=== PATIENT | female | born 1960 | race Caucasian/White ===

== ENCOUNTER 2017-05-07 04:13 | Observation (INO) ==
--- NOTE | 2017-05-07 04:26 | Emergency Department Note ---
Disposition Clinical Impression: Chest pain Qualifiers: Chest pain type: unspecified Qualified Code(s): R07.9 - Chest pain, unspecified Disposition: Admitted As Inpatient Condition: Undetermined Referrals: Rina Whelan DO [Primary Care Provider] - Forms: ED Satisfaction Letter Time of Disposition: 05:27 Chest Pain HPI - General Chief Complaint: ED Chest Pain Stated Complaint: Chest Pain Time Seen by Provider: 05/07/17 04:21 Source: patient Mode of arrival: ambulatory Limitations: no limitations Vital Signs Reviewed: Yes Nursing Notes Reviewed: Yes - History of Present Illness HPI Narrative: 56-year-old female with history of smoking arrives [facility] emergency department complaining of chest pain that began in her neck and radiated down to retrosternal region and into her back with associated shortness of breath. The patient states she has never had any experience like this in the past. The patient denies any previous history of OR or cardiac testing. The patient states that she denies any nausea, vomiting, unilateral weakness, unilateral leg swelling, recent surgeries, recent immobilizations, history of DVT or PE. The patient states that this started roughly 1 hour prior to arrival she was laying down. The patient denies any other complaints at this time is resting comfortably but appears slightly anxious on examination. The patient is tachycardic in the room. Pt complaint: chest pain Onset (ago): hour(s) (1) Duration: now resolved Onset: during rest Pain Location: substernal Severity: moderate Severity scale (1-10): 8 Quality: tightness Pain Radiation: neck Improves with: nothing Worsens with: nothing Associated symptoms: Reports: dyspnea Treatments prior to arrival chest pain: none - Related Data On Oral Contraceptives: No Previous Rx's Medication Instructions Recorded predniSONE [Prednisone] 50 mg PO DAILY #6 tablet 03/24/15 valACYclovir [Valtrex] 1,000 mg PO TID #21 tablet 03/24/15 Allergies Allergy/AdvReac Type Severity Reaction Status Date / Time No Known Allergies Allergy Verified 05/07/17 04:21 All systems ED: reviewed and negative except as stated. Constitutional: Denies: fever, chills, weakness ENT ED: Denies: congestion Cardiovascular: Reports: chest pain. Denies: dyspnea on exertion, orthopnea, edema Respiratory: Reports: dyspnea. Denies: wheezes, hemoptysis, sputum production Gastrointestinal: Denies: abdominal pain, nausea, vomiting Musculoskeletal: Reports: back pain, neck pain. Denies: arthralgia, myalgia Neurological: Denies: headache, weakness, confusion Chest Pain PMH - Past Medical History Medical history: Reports: other Surgical history: Reports: no surgical history Psychiatric history: Reports: no psych history INSTRUCTIONAL PARAPROFESSIONAL history: Reports: non-contributory - Social History Smoking Status: Current every day smoker Alcohol use: Reports: occasionally Drug use: Reports: none Physical Exam - General Limitations: no limitations General appearance: alert, in no apparent distress - Head Head exam: atraumatic, normocephalic, normal inspection - Neck Neck exam: Present: normal inspection, full ROM, trachea midline - Chest Chest inspection: Present: normal inspection, symmetric chest wall rise - Respiratory Respiratory exam: Present: normal lung sounds bilaterally - Cardiovascular Cardiovascular exam: Present: regular rate, normal rhythm, normal heart sounds - Abdominal Exam Abdominal exam: Present: soft, Non-Tender. Absent: tenderness, distention, guarding, rebound, rigidity - Extremities Exam Extremities exam: Present: normal inspection, full ROM. Absent: tenderness, pedal edema - Neurological Exam Neurological exam: Present: alert, oriented X3 - Skin Skin exam: Present: warm, dry, intact, normal color Course Vital Signs Temperature 97.7 F 05/07/17 04:16 Pulse Rate 109 05/07/17 04:16 Respiratory Rate 16 05/07/17 04:16 Blood Pressure 136/73 05/07/17 04:16 O2 Sat by Pulse Oximetry 98 05/07/17 04:16 Temperature 97.7 F 05/07/17 04:16 Pulse Rate 109 05/07/17 04:16 Respiratory Rate 16 05/07/17 04:16 Blood Pressure 136/73 05/07/17 04:16 O2 Sat by Pulse Oximetry 98 05/07/17 04:16 Oxygen Delivery Oxygen Delivery Room Air Chest Pain - MDM Narrative Medical decision making narrative: Workup here in the emergency department demonstrates no acute process. The patient is noted to have a leukocytosis of unknown etiology but this likely can be associated to possible pain. The patient denies any other complaints at this time. No signs of pneumonia or any other infectious process on physical exam. The patient has a negative troponin and negative chest x-ray but does have specific ST changes noted on her EKG. The patient has no previous cardiac testing and given the type and sensation of the patient's pain, we will admit the patient to the hospitalist for an ACS rule out. The patient was made aware and agrees to plan. She did take 1 baby aspirin at home so we will give her a large dose aspirin here in the emergency department. The patient agrees to this plan. Accepted by Dr. Celestin. - Lab Data Lab results reviewed: Yes I reviewed the patient's lab results. Result diagrams: 05/07/17 04:34 05/07/17 04:34 Lab Results 05/07/17 05/07/17 05/07/17 Range/Units 04:34 04:34 04:34 WBC 20.9 H (4.3-11.1) K/mcL RBC 4.21 (3.82-4.97) M/mcL Hgb 13.7 (11.5-15.4) g/dL Hct 41.0 (35.3-44.9) % MCV 97.4 (83.0-100.0) fL MCH 32.5 (28.0-33.3) pg MCHC 33.4 (31.6-35.5) g/dL RDW 11.8 (11.5-14.5) % Plt Count 435 H (140-400) K/mcL MPV 9.2 L (9.4-12.4) fL Immature Gran % 0.6 (0-4) % Seg Neutrophils % 82.2 % Lymphocytes % 8.9 % Monocytes % 7.5 % Eosinophils % 0.5 % Basophils % 0.3 % Neutrophils # 17.1 H (1.6-8.9) K/mcL Lymphocytes # 1.9 (0.6-4.6) K/mcL Monocytes # 1.6 H (0.0-1.3) K/mcL Eosinophils # 0.1 (0.0-0.6) K/mcL Basophils # 0.1 (0.0-0.2) K/mcL D-Dimer (0-500) ng/mLFEU Sodium 135 L (136-145) mEq/L Potassium 3.7 (3.5-4.5) mEq/L Chloride 104 (98-109) mEq/L Carbon Dioxide 23 (19-29) mEq/L BUN 10 (7-20) mg/dL Creatinine 0.72 (0.57-1.11) mg/dL Est GFR ( Amer) > 60 (> 60) Est GFR (Non-Af Amer) > 60 (> 60) BUN/Creatinine Ratio 14 (6-26) Glucose 132 H (70-99) mg/dL Calculated Osmolality 281 (280-300) Calcium 9.1 (8.6-10.8) mg/dL Troponin I 0.00 (0-0.03) ng/mL 05/07/17 Range/Units 04:34 WBC (4.3-11.1) K/mcL RBC (3.82-4.97) M/mcL Hgb (11.5-15.4) g/dL Hct (35.3-44.9) % MCV (83.0-100.0) fL MCH (28.0-33.3) pg MCHC (31.6-35.5) g/dL RDW (11.5-14.5) % Plt Count (140-400) K/mcL MPV (9.4-12.4) fL Immature Gran % (0-4) % Seg Neutrophils % % Lymphocytes % % Monocytes % % Eosinophils % % Basophils % % Neutrophils # (1.6-8.9) K/mcL Lymphocytes # (0.6-4.6) K/mcL Monocytes # (0.0-1.3) K/mcL Eosinophils # (0.0-0.6) K/mcL Basophils # (0.0-0.2) K/mcL D-Dimer 355 (0-500) ng/mLFEU Sodium (136-145) mEq/L Potassium (3.5-4.5) mEq/L Chloride (98-109) mEq/L Carbon Dioxide (19-29) mEq/L BUN (7-20) mg/dL Creatinine (0.57-1.11) mg/dL Est GFR ( Amer) (> 60) Est GFR (Non-Af Amer) (> 60) BUN/Creatinine Ratio (6-26) Glucose (70-99) mg/dL Calculated Osmolality (280-300) Calcium (8.6-10.8) mg/dL Troponin I (0-0.03) ng/mL - Radiology Data Radiology results reviewed: Yes I reviewed the patient's radiology results. - EKG Data EKG attestation: Yes I reviewed and interpreted this EKG. EKG results narrative: Heart rate 10 2 bpm. ND interval 124 ms. QTC 378 ms. Normal axis. Sinus tachycardia. No ST elevation but ST depression noted in leads 2, 3, aVF, V3 through V6 with nonspecific ST changes noted in the lateral leads from previous EKG on 12/11/2016. Attestation Statement - Attestation Attestation: I, Mario Calderon MD, personally evaluated this patient and discussed their management with the resident physician. I reviewed the resident's note and agree with the documented findings, medical decision making, and plan of care. 56-year-old female presents to the emergency department with a complaint that she was awakened from sleep about 1 hour prior to arrival with severe substernal chest pain radiating up into her throat area. The pain then radiated into the back between her shoulder blades. She denies any shortness of breath or diaphoresis associated with the pain. No history of any heart disease or hypertension. She is a smoker. No family history of heart disease. On examination patient is a well-developed well-nourished female in no acute distress. She is alert and oriented 3. There is no cyanosis or diaphoresis. Neck is supple and nontender with no lymphadenopathy. Chest is nontender to palpation. Breath sounds are clear and equal bilaterally. Heart regular rate and rhythm. No murmur or ectopy. Abdomen soft and nontender with normal bowel sounds. No pedal edema. Labs reviewed. Troponin negative. Chest x-ray negative. EKG shows sinus tachycardia, heart rate 102, nonspecific ST and T-wave changes with diffuse T- wave flattening and mild ST depression in the inferior and anterolateral leads. The hospitalist, Dr. Celestin, was consulted and accepted admission of the patient.
[2017-05-07 04:43] LABS: Basophils # 0.1 K/mcL (0.0-0.2); Basophils % 0.3 %; Eosinophils # 0.1 K/mcL (0.0-0.6); Eosinophils % 0.5 %; Hemoglobin 13.7 g/dL (11.5-15.4); Immature Granulocytes % 0.6 % (0-4); Lymphocytes # 1.9 K/mcL (0.6-4.6); Lymphocytes % 8.9 %; Mean Corpuscular HGB Conc 33.4 g/dL (31.6-35.5); Mean Corpuscular Hemoglobin 32.5 pg (28.0-33.3); Mean Corpuscular Volume 97.4 fL (83.0-100.0); Mean Platelet Volume 9.2 fL (9.4-12.4); Monocytes # 1.6 K/mcL (0.0-1.3); Monocytes % 7.5 %; Neutrophils # 17.1 K/mcL (1.6-8.9); Platelet Count 435 K/mcL (140-400); Red Blood Count 4.21 M/mcL (3.82-4.97); Red Cell Distribution Width 11.8 % (11.5-14.5); Segmented Neutrophils % 82.2 %
[2017-05-07 04:56] LABS: BUN/Creatinine Ratio 14 (6-26); Blood Urea Nitrogen 10 mg/dL (7-20); Calcium 9.1 mg/dL (8.6-10.8); Carbon Dioxide 23 mEq/L (19-29); Chloride 104 mEq/L (98-109); Glucose 132 mg/dL (70-99); Osmolality,Calculated 281 (280-300); Potassium 3.7 mEq/L (3.5-4.5); Sodium 135 mEq/L (136-145); eGFR For African Americans > 60 (> 60); eGFR For Non-African Americans > 60 (> 60)
[2017-05-07] MEDS ORDERED: Aspirin 325 MG TABLET PO ONE (05:12)
[2017-05-07] MEDS ORDERED: Acetaminophen 325 MG TABLET PO PRN (06:04)
[2017-05-07] MEDS ORDERED: Ondansetron 4 MG/2 ML VIAL IVP PRN (06:04)
[2017-05-07] MEDS ORDERED: Naloxone 0.4 MG/ML INJ IVP PRN (06:04)
[2017-05-07] MEDS ORDERED: *HR* Morphine 2 MG/ML SYRINGE IVP PRN (06:04)
[2017-05-07] MEDS ORDERED: Nitroglycerin 0.4 MG TAB.SUBL SL PRN (06:09)
[2017-05-07] MEDS ORDERED: 0.9 % Sodium Chloride 1,000 ML IVC SCH (06:15)
[2017-05-07] MEDS ORDERED: Regadenoson 0.4 MG/5 ML SYRINGE IVP ONE (06:17)
--- NOTE | 2017-05-07 06:17 | Internal Med History&Physical ---
Date of Encounter: 05/07/17 Time of Encounter: 06:00 Assessment and Plan (1) Chest pain Current visit: Yes Status: Acute Acute chest pain - rule out ACS, possible unstable angina - risk factor includes smoking Continue Aspirin, Lipitor, Metoprolol IV Morphine PRN, Nitroglycerin PRN Troponin - 0.00, cycle troponin BNP - pending EKG - sinus tachycardia with nonspecific ST-T changes Chest x-ray - negative D-dimer - 355 WBC - 20.9, unclear etiology Echocardiogram - pending Stress test - pending Cardiology consult if troponin is elevated or if chest pain is persistent Cardiac telemetry, labs in a.m., monitor closely Qualifiers: Chest pain type: unspecified Qualified Code(s): R07.9 - Chest pain, unspecified (2) Tobacco abuse Current visit: Yes Status: Chronic Patient states she smokes about half pack cigarettes - has been smoking for about 10 years Counseled about cessation (3) DVT prophylaxis Current visit: Yes Status: Acute Continue Heparin subcutaneous Internal Medicine - H&P: HPI Chief complaint: Chest pain Admitted From: Emergency Dept Plans for Post Hospital Care: Home History of present illness: Ms. Vincent is a 56 year old female with no significant past medical history. She presents to ED with complaint of chest pain. Examined in the room. Patient is awake and alert. Not in any distress. Able to provide all history. No family members at bedside. Patient states she woke up at 2 AM this morning with chest pain. Patient states she fell asleep on the couch and woke up to go into the kitchen and felt some chest pressure and tightness. Symptoms are gradually worsening and pain was about 10 out of 10. She describes it as pressure which is constant, and radiating to her neck. Pain also seems to be radiating to her back. She also experienced palpitations and mild shortness of breath, but no diaphoresis. Pain is worse when she takes a deep breath. Denies vomiting or abdominal pain or fever or diarrhea. No alleviating factors. Patient states her pain is 5 out of 10 at present. No other associated symptoms. No other acute complaints. She was given aspirin in the ED. Initial workup in the ED significant for elevated white count. EKG shows sinus tachycardia with nonspecific ST changes. Troponin is negative. D-dimer is negative. Chest x-ray is negative. Patient is a chronic smoker. She has no history of any coronary artery disease in family. Patient is being admitted for chest pain to rule out ACS. Patient has been explained about her condition and plan of care. She understood and agreed. No unanswered questions. CODE STATUS full code. Past Med Surg Social Fam HX - Past Medical History Medical history: non-contributory, other Psychiatric history: no psych history - Past Surgical History Surgical History: no surgical history - Social History Smoking Status: Current every day smoker Smokeless Tobacco Status: No Alcohol use: occasionally Drug use: none - Family History Maternal Grandmother Name: Jovita Sorto Age at : 94 Hx Family Neurologic Disorders: Yes (Alzheimers) Internal Medicine - H&P: Meds predniSONE [Prednisone] 50 mg PO DAILY #6 tablet 03/24/15 [Rx] valACYclovir [Valtrex] 1,000 mg PO TID #21 tablet 03/24/15 [Rx] 3 Allergy/AdvReac Type Severity Reaction Status Date / Time No Known Allergies Allergy Verified 05/07/17 04:21 All Systems PM: A 10-system review of systems was performed and is negative for pertinent findings except as documented above in the HPI. - Constitutional Constitutional: no fatigue, no fever(s), no weakness - EENT Eyes: no blurry vision - Cardiovascular Cardiovascular ROS IM: chest pain, dyspnea, palpitations, no diaphoresis, no dyspnea on exertion, no edema, no lightheadedness, no orthopnea, no syncope - Respiratory Respiratory: dyspnea, no cough, no hemoptysis, no dyspnea on exertion, no wheezing, no chest congestion - Gastrointestinal Gastrointestinal: no abdominal pain, no bloating, no cramping, no diarrhea, no hematemesis, no hematochezia, no melena, no nausea, no vomiting - Genitourinary Genitourinary: no dysuria - Musculoskeletal Musculoskeletal ROS IM: back pain - Neurological Neurological ROS: no abnormal gait, no confusion, no dizziness, no loss of vision, no numbness, no tingling - Constitutional Vitals: Temp Pulse Resp BP Pulse Ox 97.7 F 105 16 129/80 97 05/07/17 04:16 05/07/17 05:28 05/07/17 05:51 05/07/17 05:51 05/07/17 05:28 General appearance: Present: cooperative, A&O X 3, pleasant, no acute distress, answers questions appropriately - Head Head exam: Present: atraumatic - Eye Eye exam: Present: EOMI - ENT ENT exam: Present: mucous membranes moist - Cardiovascular Cardiovascular exam: Present: +S1, +S2, tachycardia (Regular rhythm) - GI/Abdominal GI/Abdominal exam: Present: soft. Absent: distended, firm, guarding, tenderness - Extremities Exam Extremities exam: Present: radial pulses palpable and symmetrical. Absent: calf tenderness, cyanotic, pedal edema - Neurological Exam Neurological exam: Present: alert, oriented X3, no focal deficits. Absent: facial droop, speech deficit Internal Med - H&P Results - Labs CBC & Chem 7: 05/07/17 04:34 05/07/17 04:34
[2017-05-07 06:33] LABS: INR 0.9; Prothrombin Time 9.4 Seconds (9.4-12.1)
[2017-05-07] MEDS: *HR* Heparin 5,000 UNIT/ML VIAL SQ SCH ×4 (06:40→20:29)
[2017-05-07 06:41] LABS: Chol/HDL Ratio 4.2 (0-4.9); Cholesterol 246 mg/dL (< 200); HDL Cholesterol 59 mg/dL (40-59); LDL Cholesterol,Calculated 148 mg/dL (0-99); Magnesium 1.8 mg/dL (1.6-2.6); Triglycerides 194 mg/dL (< 150)
[2017-05-07 08:18] LABS: Bilirubin,Urine Negative (Negative); Blood,Urine Moderate (Negative); Clarity,Urine Clear (Clear); Color,Urine Yellow (Yellow); Glucose,Urine (UA) Normal (Normal); Ketones,Urine Negative (Negative); Leukocyte Esterase,Urine Negative (Negative); Nitrite,Urine Negative (Negative); PH,Urine 6.5 pH Units (5.0-8.0); Protein,Urine Negative (Neg-Trace); Specific Gravity,Urine 1.006 (1.010-1.025); Urobilinogen,Urine Normal (Normal)
[2017-05-07 08:32] LABS: Squamous Epithelial Cell,Urine Few per lpf (None-Few)
[2017-05-07 08:34] LABS: Bacteria,Urine Few per hpf (None-Few); RBC,Urine 0-3 per hpf (0-3)
[2017-05-07 10:22] LABS: Hemoglobin A1C 4.9 %
[2017-05-07] MEDS: Aspirin 81 MG TAB.CHEW PO SCH (12:08)
--- NOTE | 2017-05-07 12:56 | Nuclear Medicine Stress Report ---
Regadenoson Nuclear Stress Name: Jolie Vincent Date of Study: 05/07/2017 Date: 1960 Ht: 65.0 in Medical Record#: [id number] Age: 56 Wt: 140.0 lb Gender: Female Order #: [id number] [facility] Room[facility] Supervising Provider: oSnny Sanders CNP Reading Physician: Jaimee Rodriguez DO Ordering Physician: Brigitte Mosher CNP Stress Technologist: Florencio Megloza CRT Orthopedic Mechanic: Dale Juárez Indications: Chest Pain Impression: Perfusion imaging was negative for ischemia or infarct. Pharmacologic ECG was non diagnostic for ischemia. Patient had 5/10 chest pain described as occurring during inspiration. Gated EF = >70%. Recommend clinical correlation. History: History of Smoking Stress Test Summary: Stress Test Type: Pharmacologic Regadenoson 0.4mg/5ml given IV Baseline Information: Initial Heart Rate: 86 Blood Pressure: 112/70 Stress Information: Test Terminated Due to (primary): As per protocol Maximum Blood Pressure: 110/60 Maximum Heart Rate: 122 Percent Maximum Heart Rate Achieved: 74 Double Product: 22048 METS Reached: 1 Symptoms: No change in symptoms Nuclear Summary: SPECT myocardial perfusion imaging using Tc99m Sestamibi given intravenously was performed at rest and following cardiac stress testing. The resting images were obtained following initial dose of 10.4 mCi. Following stress an additional dose of 32.8 mCi was given at peak exercise or 30 seconds post regadenoson infusion. Medication Given: Time Medication Dose Units Route Findings: Stress Note * Resting ECG demonstrated normal sinus rhythm. There are nonspecific ST-T abnormalities immediately during beginning of stage 1 and intermittently occur during pharmacologic stress. * Pharmacologic stress ECG is non diagnostic for ischemia due to baseline non-specific ST and T changes. * No arrhythmias were noted during stress. * Patient described chest heaviness 5/10 with inspiration during testing. Hemodynamic responses * Normal hemodynamic responses to pharmacologic stress. Study Quality * Study quality is good. Gated EF > 70% * Gated EF > 70%. Left Ventricle * The left ventricle is not dilated. TID * No evidence of transient ischemic dilatation. Lung Uptake * There is no evidence of increase lung uptake. NORMALS * Normal wall motion. * Normal segmental perfusion in stress. * Normal Segmental Perfusion in rest. Updated by Jaimee Rodriguez on 05/07/2017 12:49:06 PM electronically signed on 05/07/2017 12:50:46 PM with status of Final
[2017-05-07 14:13] LABS: BUN/Creatinine Ratio 13 (6-26); Blood Urea Nitrogen 8 mg/dL (7-20); Calcium 8.8 mg/dL (8.6-10.8); Carbon Dioxide 26 mEq/L (19-29); Chloride 106 mEq/L (98-109); Glucose 113 mg/dL (70-99); Osmolality,Calculated 287 (280-300); Sodium 139 mEq/L (136-145); eGFR For African Americans > 60 (> 60); eGFR For Non-African Americans > 60 (> 60)
--- NOTE | 2017-05-07 17:07 | Electrocardiograph Report ---
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
--- NOTE | 2017-05-07 17:18 | Electrocardiograph Report ---
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
[2017-05-07] MEDS: Famotidine 20 MG/2 ML VIAL IVP SCH (17:39)
--- NOTE | 2017-05-07 17:40 | Internal Med Progress Note ---
Date of Encounter: 05/07/17 Time of Encounter: 07:30 - Assessment and plan (1) Chest pain Current Visit: Yes Status: Acute Assessment and plan: Pt was admitted for chest pain, rates it currently 08/15. Denies aggravating or alleviating factors. Risk factors include smoking and female sex. Pt has been placed on ASA, statin, and BB. Treat pain with IV morphine or NTG prn BNP negative, DDimer not elevated, leukocytosis of uncertain etiology, could be reactive to stress Chest xray negative. EKG was sinus rhythm with short PA interval, nonspecific T -wave abnormality rate 89, PA interval 92, QRS 81, QTC 409. Echocardiogram shows LVEF of 65% with normal LV systolic function, normal LVEDD , no significant valvular dysfunction. Stress test negative for ischemia or infarct, gated EF >70%. During stress test patient had 5/10 chest pain that occurred during inspiration. Differentials include bronchitis, possible COPD exacerbation, the patient has not been diagnosed with COPD, reflux. She denies cough She is a smoker. Patient denies history of GERD or any GERD symptoms. Abdomen is soft and nontender with bowel sounds present. Bedolla sign is negative, there is no tenderness to palpation in epigastric area or McBurney's point. Continue telemetry Pain medication as needed, continue aspirin, statin, beta gabe Qualifiers: Chest pain type: unspecified Qualified Code(s): R07.9 - Chest pain, unspecified (2) Tobacco abuse Current Visit: Yes Status: Chronic Assessment and plan: Patient is a one pack per day smoker. We discussed smoking cessation, she states that she has not thought about having a cigarette. Continue to encourage smoking cessation prior to discharge. (3) DVT prophylaxis Current Visit: Yes Status: Acute Assessment and plan: Heparin subcutaneous. Patient is ambulatory in her room. (4) Leukocytosis Current Visit: Yes Status: Acute Assessment and plan: Pt admitted with WBC 20.9, neutrophils 17.0. Unclear etiology. Will recheck labs in the a.m. Pt admitted for chest pain that appears to increase with deep inspiration. She denies cough or recent illness. She denies subjective fevers or sick contacts. Pt has been afebrile here and has been tachycardic until about noon today, pulse has returned to normal limits. She is not tachypneic. Urine is negative for infection, chest xray is negative. Differentials include viral infection, early bronchitis, early pneumonia, COPD exacerbation. Continue to monitor labs, vitals for signs of sepsis Redraw labs in a.m. Qualifiers: Leukocytosis type: unspecified Qualified Code(s): D72.829 - Elevated white blood cell count, unspecified - Time Spent With Patient less than 15 minutes - Subjective Interval history: Pt was seen and assessed at 0730 this am. Pt is alert, oriented, answers questions appropriately. She reports sudden onset chest pressure/heaviness that originated in the epigastric area and radiated into her throat at 0200. She states that after a while, it began to radiate in upper back and she was unable to get comfortable in her bed, prompting the visit to the ED. Currently, pt reports 1/10 pain, same as above. She denies n/v/d, diaphoresis, radiation to jaw or arm. Pt denies headache, vision changes, SOB, abdominal pain, stiff neck , or recent change in routine/physical activity. - Constitutional Vitals: Temp Pulse Resp BP Pulse Ox 98.9 F 79 16 102/68 97 05/07/17 15:38 05/07/17 15:38 05/07/17 15:38 05/07/17 15:38 05/07/17 15:38 General appearance: Present: cooperative, A&O X 3, pleasant, no acute distress, answers questions appropriately - Head Head exam: Present: atraumatic, normal inspection, normocephalic - Eye Eye exam: Present: normal appearance, conjuntiva pink, sclera anicteric - Neck Neck exam general surgery: Present: supple, trachea midline. Absent: lymphadenopathy, tenderness - Respiratory Respiratory exam: Present: CTAB. Absent: accessory muscle use, chest wall tenderness, rales, respiratory distress, rhonchi, wheezes - Cardiovascular Cardiovascular exam: Present: RRR, +S1, +S2. Absent: diastolic murmur, gallop, rubs, systolic murmur - GI/Abdominal GI/Abdominal exam: Present: normal bowel sounds, soft. Absent: distended, hepatomegaly, tenderness - Expanded GI/Abdominal Exam GI/Abdominal exam expanded: Absent: Bedolla's sign, Rovsing's sign, tenderness at McBurney's Point - Extremities Exam Extremities exam: Present: normal capillary refill, warm, radial pulses palpable and symmetrical. Absent: calf tenderness, cyanotic, pedal edema, tenderness - Neurological Exam Neurological exam: Present: alert, oriented X3, no focal deficits. Absent: pronater drift, facial droop, speech deficit - Skin Skin exam: Present: dry, intact, normal color, warm. Absent: rash Internal Medicine: Result - Labs CBC & Chem 7: 05/07/17 04:34 05/07/17 13:50 Labs: BMP 05/07/17 13:50 Sodium 139 Potassium 4.0 Chloride 106 Carbon Dioxide 26 BUN 8 Creatinine 0.64 Glucose 113 H Calcium 8.8 Cardiac Enzymes 05/07/17 Range/Units 08:37 Troponin I 0.01 (0-0.03) ng/mL Urine 05/07/17 Range/Units 07:50 Urine Color Yellow (Yellow) Urine Clarity Clear (Clear) Urine pH 6.5 (5.0-8.0) pH Units Ur Specific [place] 1.006 L (1.010-1.025) Urine Protein Negative (Neg-Trace) mg/dL Urine Glucose (UA) Normal (Normal) mg/dL - ABG Interpretation ABG results: PT/INR, D-dimer PT 9.4 Seconds (9.4-12.1) 05/07/17 04:34 D-Dimer 355 ng/mLFEU (0-500) 05/07/17 04:34 - Impressions Impressions Echocardiogram 05/07/17 06:07 Impressions: LVEF 65%. Normal left ventricular size and systolic function. Normal diastolic function of the left ventricle. Normal right ventricular size and function. No significant valvular dysfunction. No pulmonary hypertension. Left Ventricular Wall Motion: Rest Echo Findings All wall segments showed normal motion. Findings: Study Quality * Technically adequate exam. ECG Findings * Normal sinus rhythm. Left Ventricle * Normal LV chamber size, wall thickness and function. * Normal left ventricular diastolic function. * LVEF 65%. Aorta * Normally sized aortic root. Aortic Valve * No aortic regurgitation. * Aortic valve not well visualized. * No aortic stenosis. Mitral Valve * Normal mitral valve structure. * No mitral regurgitation. * No mitral stenosis. Tricuspid Valve * Tricuspid valve not well visualized. * No tricuspid regurgitation. * Estimated RA pressure is 3 mmHg. * Estimated RVSP is 18 mmHg. * No pulmonary hypertension. Pulmonic Valve * Pulmonic valve is not well visualized. * No pulmonic stenosis. * No pulmonic regurgitation. Pulmonary Artery * Pulmonary artery not well visualized. Right Ventricle * Normal right ventricular structure and function. Left Atrium * Normal left atrial size. Right Atrium * Normal right atrial size. Pericardium * There is no pericardial effusion present. Interatrial Septum * No evidence of PFO by color Doppler. IVC * Normal IVC dimensions and inspiratory collapse. Consult Discharge Plan - Plan Referrals: Rina Whelan DO [Primary Care Provider] -
[2017-05-08 04:35] LABS: Basophils % 0.4 %; Eosinophils # 0.1 K/mcL (0.0-0.6); Eosinophils % 0.8 %; Hematocrit 36.7 % (35.3-44.9); Hemoglobin 12.5 g/dL (11.5-15.4); Immature Granulocytes % 0.4 % (0-4); Lymphocytes # 2.8 K/mcL (0.6-4.6); Lymphocytes % 29.8 %; Mean Corpuscular HGB Conc 34.1 g/dL (31.6-35.5); Mean Corpuscular Hemoglobin 33.2 pg (28.0-33.3); Mean Corpuscular Volume 97.6 fL (83.0-100.0); Mean Platelet Volume 9.8 fL (9.4-12.4); Monocytes # 1.4 K/mcL (0.0-1.3); Monocytes % 14.2 %; Neutrophils # 5.2 K/mcL (1.6-8.9); Nucleated Red Blood Cells 0.2 /100 WBC (0); Platelet Count 352 K/mcL (140-400); Red Blood Count 3.76 M/mcL (3.82-4.97); Segmented Neutrophils % 54.4 %
[2017-05-08 04:50] LABS: BUN/Creatinine Ratio 12 (6-26); Blood Urea Nitrogen 8 mg/dL (7-20); Calcium 8.9 mg/dL (8.6-10.8); Carbon Dioxide 25 mEq/L (19-29); Chloride 108 mEq/L (98-109); Glucose 78 mg/dL (70-99); Osmolality,Calculated 289 (280-300); Potassium 4.1 mEq/L (3.5-4.5); Sodium 141 mEq/L (136-145); eGFR For African Americans > 60 (> 60); eGFR For Non-African Americans > 60 (> 60)
[2017-05-08] MEDS: *HR* Heparin 5,000 UNIT/ML VIAL SQ SCH (05:36)
[2017-05-08] MEDS: Famotidine 20 MG/2 ML VIAL IVP SCH (05:36)
[2017-05-08] MEDS: Aspirin 81 MG TAB.CHEW PO SCH (07:49)
[2017-05-08 11:10] VITALS: BP 114/79
--- NOTE | 2017-05-08 12:23 | Discharge Summary ---
Date of Encounter: 05/08/17 Time of Encounter: 12:26 - Discharge Diagnosis (1) Chest pain Priority: Primary Status: Acute Comments: Jolie Vincent is a 56-year-old female with no significant past medical history who presented to [facility] on 05/07/2017 is complaints of chest pain. She was placed in observation status for ACS rule out. She underwent a stress test that was negative for infarct or ischemia. Her symptoms improved and she was discharged home in stable condition with outpatient follow-up. Chest pain: presented with chest pain that began in her neck and radiated down to retrosternal region and into her back with associated shortness of breath. TTE with EF 65%, normal systolic function, no valvular dysfunction. Stress test negative for ischemia or infarct. Chest CTA negative for pulmonary embolism. Possibly musculoskeletal as cardiac and respiratory etiology ruled out. Chets pain improved at time of discharge. Cont ASA. Recommend follow-up with PCP Qualifiers: Chest pain type: unspecified Qualified Code(s): R07.9 - Chest pain, unspecified (2) Hyperlipidemia Priority: Primary Status: Acute Comments: LDL 148, statin initiated. Can follow-up with PCP Qualifiers: Hyperlipidemia type: pure hypercholesterolemia Qualified Code(s): E78.00 - Pure hypercholesterolemia, unspecified; E78.0 - Pure hypercholesterolemia (3) Leukocytosis Priority: Primary Status: Acute Comments: WBC 20K on arrival (blood cultures and lactic acid not obtained). CXR and UA unremarkable. Afebrile and WBC normalized without intervention. Suspect reactive. Recommend repeat CBC with PCP in one week Qualifiers: Leukocytosis type: unspecified Qualified Code(s): D72.829 - Elevated white blood cell count, unspecified (4) Tobacco abuse Priority: Primary Status: Chronic Comments: current smoker; cessation advised - Discharge Medications Prescriptions: Aspirin 81 mg PO DAILY #30 tab.chew Atorvastatin [Lipitor] 40 mg PO HS #30 tablet Home Medications: Multivit-Min/FA/Lycopen/Lutein [A Thru Z Select Multivit Tab] 1 tab PO DAILY 09/22 [History] Aspirin 81 mg PO DAILY #30 tab.chew 05/08/17 [Rx] Atorvastatin [Lipitor] 40 mg PO HS #30 tablet 05/08/17 [Rx] Allergies/Adverse Reactions: 3 Allergy/AdvReac Type Severity Reaction Status Date / Time No Known Allergies Allergy Verified 05/07/17 04:21 Procedures/tests Complete & Pending: Procedures Performed prior 72 hours Category Date Time Status CTA chest [CT angio chest] [CT] Routine Cat Scan 05/08/17 11:30 Taken NM jacobo perf SPECT multi [NM] Routine Exams 05/07/17 09:28 Taken EKG [ECG 12 lead ECG] [ECG] Routine Y 05/07/17 08:00 Completed EV echocardiogram Routine Y 05/07/17 06:07 Completed SP pharm nuclear stress Routine Y 05/07/17 06:07 Completed Date of admission: 05/07/17 05:38 Primary care physician: Roxanne Marquez Discharging clinician: Kimberly Sharpe Anticipated date of discharge: 05/08/17 - Patient Status Disposition: Home, Self-Care Condition: Good Functional capacity at discharge: independent ambulation Overall status at discharge: patient is back to baseline - Discharge Instructions Follow Up With: Rina Whelan DO [Primary Care Provider] - - Diet and Activity Activity: resume usual activities as tolerated Diet: low fat, low cholesterol Interval History: Seen and examined at bedside. Says she feels better with like to go home today. Has a little chest discomfort with deep inspiration otherwise she has no complaints. Denies chest pain, no SOB all my exam. Smoking cessation advised. Hospital course: Ms. Vincent is a 56 year old female - Time Spent with Patient Total time spent providing and/or coordinating discharge services: Greater than 30 minutes (36 minutes spent on discharge) - Constitutional Vitals: Temp Pulse Resp BP Pulse Ox 98.0 F 71 16 114/79 97 05/08/17 11:07 05/08/17 11:07 05/08/17 11:07 05/08/17 11:07 05/08/17 11:07 General appearance: Present: cooperative, A&O X 3, pleasant, no acute distress, answers questions appropriately - Head Head exam: Present: atraumatic, normocephalic - Eye Eye exam: Present: PERRL, conjuntiva pink, sclera anicteric Pupils: Present: PERRL - Neck Neck exam general surgery: Present: supple, trachea midline. Absent: lymphadenopathy - Respiratory Respiratory exam: Present: CTAB. Absent: accessory muscle use, rales, rhonchi, wheezes - Cardiovascular Cardiovascular exam: Present: RRR, +S1, +S2. Absent: diastolic murmur, gallop, rubs, systolic murmur - GI/Abdominal GI/Abdominal exam: Present: normal bowel sounds, soft, no peritoneal signs. Absent: distended, tenderness - Extremities Exam Extremities exam: Present: warm, radial pulses palpable and symmetrical. Absent : calf tenderness, cyanotic, pedal edema - Neurological Exam Neurological exam: Present: CN II-XII intact, oriented X3, no focal deficits. Absent: pronater drift, facial droop, speech deficit - Skin Skin exam: Present: dry, intact
== END 2017-05-08 14:07 | disposition home or self-care (01) ==
LOC: 3BNU 04:13 → EMEROO 04:13 → 3BNU 06:10
PROVIDERS: ADMIT Family Medicine; ATTEND Registered Nurse